=== PATIENT | female | born 1935 | race Caucasian/White ===

== ENCOUNTER 2016-11-15 05:37 | Day surgery (SDC) | payer MEDICARE, BC ==
[~2016-11-15] VITALS: Ht 157.5 cm; Wt 71.7 kg
[~2016-11-15 05:37] MED LIST: ACET-2723 PO; ANAS1TAB8 PO; ASCO500T9 PO; CALC-969 PO; CETI10TA56 PO; CHOL100018 PO; CINN500C14 PO; CYAN10009 PO; DENO120V SQ; FERR325T40 PO; FILG480S2 SQ; FISH1CAP29 PO; FLUT9.9S EA NOSTRIL; GABA-336 PO; GLUC-147 PO; HYDR25TA PO; IBUP-1724 PO; LABE200T27 PO; LEVO50TA72 PO; METF-200 PO; MULT-861 PO; PACL100V IV; RANI-197 PO; WARF5TAB6 PO; [UNRECOGNIZED DRUG - CODE] IV; [UNRECOGNIZED DRUG - CODE] PO
--- OUTSIDE RECORDS SUMMARY | 2016-11-15 05:42 | XMS REPORT | Continuity of Care Document ---
Author Author [facility] Organization [facility] Address Unknown Phone Unavailable Support Name Relationship Address Phone SHANTANU PATTERSON MD Caregiver [address] [place] [address] Unavailable JAROD BATISTA MD Caregiver [address] [place] [address] Unavailable RADAMES PERRY Next Of Kin Unknown [phone] Insurance Providers Guarantor Cecilia Vallejo Address [address] [place] [address] * Email [email or web address] Payer [employer] Select Plan 65 Policy Number [id number] Subscriber's Name Cecilia Vallejo Relationship 18 Self Group Number [id number] Effective Date 13 Payer Medicare Policy Number [id number] Subscriber's Name Cecilia Vallejo Relationship 18 Self Problems No problem information available. Medications Current Home Medications Medication Dose Units Route Directions Days Qty Instructions Start Date Acetaminophen (Tylenol Arthritis) 650 Mg Tablet.sa 650 Mg Oral As Needed 03/08/11 Calcium Carbonate/Vitamin D3 (Calcium 600 + D Tablet) 1 Tab Tablet 1 Tab Oral Daily 03/07/11 Cetirizine Hcl (Zyrtec) 10 Mg Tablet 10 Mg Oral Daily 03/07/11 Fish Oil/[place]-3 Fatty Acids (Fish Oil 1,000 Mg Capsule) 1 Cap Capsule 1 Cap Oral Daily 03/07/11 Fluticasone Propionate (Flonase Allergy Relief 50 Mcg/Actuation Nasal) 9.9 Ml [place].susp 1 [place] Each Nostril Daily as needed for Allery Symptoms 06/22/15 Glucosamine/D3/Boswellia Melba (Osteo Bi-Flex Caplet) 1 Each Tablet 1 Tab Oral Daily 06/22/15 Hydrochlorothiazide 12.5 Mg Tablet 12.5 Mg Oral Daily 03/07/11 Labetalol Hcl 200 Mg Tablet 200 Mg Oral Twice A Day 03/07/11 Levothyroxine Sodium 50 Mcg Tablet 50 Mcg Oral Daily 03/07/11 Lisinopril 2.5 Mg Tablet 2.5 Mg Oral Bedtime 03/07/11 Metformin Hcl 500 Mg Tablet 500 Mg Oral Twice A Day 03/07/11 Multivitamins W-Minerals (Vision) 1 Tab Tablet 1 Tab Oral Daily 03/07/11 Ranitidine Hcl 150 Mg Tablet 150 Mg Oral Three Times A Day Past Home Medications Medication Directions Ordered Status Ibuprofen 200 Mg Tablet, 03/07/11 Discontinued Social History Social History Problem Response Recorded Date/Time Onset Date Status Hx Substance Use No 06/23/2015 6:51am Not Applicable Not Applicable Hx Alcohol Use No 06/23/2015 6:51am Not Applicable Not Applicable Has the pt used tobacco in the last 12 months No 08/11/2016 10:31am Not Applicable Not Applicable Query Response Start Date Stop Date Smoking Status Never smoker Hospital Discharge Instructions No hospital discharge instructions. Plan of Care Prescriptions See Medication Section Functional Status No functional status results. Allergies, Adverse Reactions, Alerts Allergen Type Severity Reaction Status Last Updated ciprofloxacin HCl Allergy Intermediate REDNESS/ITCHING Active 03/07/11 paroxetine HCl Adverse Reaction Severe MEMORY LOSS Active 03/07/11 Cephalexin Monohydrate Allergy Intermediate REDNESS/ ITCHING Active Penicillin Allergy Severe WELTS/BOILS Active 03/07/11 Digoxin Adverse Reaction Intermediate RAPID BOUNDING HEART BEAT Active 10/13 Doxycycline Allergy Intermediate REDNESS/ITCHING Active 03/07/11 Erythromycin base Allergy Intermediate REDNESS ITCHING Active 03/07/11 Sulfamethoxazole Allergy Intermediate REDNESS /ITCHING Active 03/07/11 Trimethoprim Allergy Intermediate REDNESS /ITCHING Active 03/07/11 Ciprofloxacin Allergy Intermediate REDNESS/ITCHING Active 03/07/11 Terfenadine Allergy Unknown Active 06/22/15 Amoxicillin Allergy Unknown Active 06/22/15 Diltiazem Adverse Reaction Intermediate RAPID BOUNDING HEART BEAT Active 03/07/11 Pantoprazole Adverse Reaction Intermediate NAUSEA Active 03/07/11 ETHANOL Allergy Unknown Active 06/22/15 Immunizations Query Response on File Recorded Date/Time Hx Influenza Vaccination N DECLINES 08/11/16 10:31am Hx Pneumococcal Vaccination No 08/11/16 10:31am Hx Influenza Vaccination N DECLINES 08/11/16 10:31am Vital Signs Acute Vital Signs Vital Response Date/Time Temperature (Fahrenheit) 97.4 deg F (96.8 - 99.1) 08/11/2016 10:32am Temperature (Calculated Celsius) 36.11439 degrees C (36.0 - 37.3) 08/11/2016 10:32am Pulse Rate (adult) 76 bpm (60 - 100) 08/11/2016 10:32am Respiratory Rate 18 breaths/min (10 - 20) 08/11/2016 10:32am O2 Sat by Pulse Oximetry 99 % (90 - 100) 08/11/2016 10:32am Oxygen Delivery Method Room Air 08/11/2016 10:32am Blood Pressure 111/62 mm Hg 08/11/2016 10:32am Blood Pressure Source Automatic Cuff 08/11/2016 10:32am Height (Feet) 5 feet 08/11/2016 10:28am Height (Inches) 4.00 inches 08/11/2016 10:28am Weight (Kilograms) 75.450 kg 08/11/2016 10:28am Body Mass Index (BMI) 28.6 08/11/2016 10:28am Results Laboratory Results Test Name Result Units Flags Reference Collection Date/Time Result Date/ Time Comments White Blood Count 1.5 T/MM3 *L 4.5-11.0 08/06/2016 11:35am 08/06/2016 11: 47am Red Blood Count 2.97 M/MM3 L 4.00-5.20 08/06/2016 11:35am 08/06/2016 11: 47am Hemoglobin 10.2 GM/DL L 12-16 08/06/2016 11:35am 08/06/2016 11:47am Hematocrit 31.2 % L 36-46 08/06/2016 11:35am 08/06/2016 11:47am Mean Corpuscular Volume 105.1 UM3 H 80-100 08/06/2016 11:35am 2016 11:47am Mean Corpuscular Hemoglobin 34.3 UUG H 26-34 08/06/2016 11:35am 2016 11:47am Mean Corpuscular Hemoglobin Concent 32.7 GM/DL 31-37 08/06/2016 11:35am 08/06/2016 11:47am RDW Standard Deviation 71.8 FL H 36.9-50.2 08/06/2016 11:35am 2016 11:47am Platelet Count 101 T/MM3 L 130-400 08/06/2016 11:35am 08/06/2016 11: 47am Mean Platelet Volume 9.6 UM3 9.4-12.4 08/06/2016 11:35am 08/06/2016 11: 47am Neutrophils % (Manual) 50.0 % 33-66 08/06/2016 11:35am 08/06/2016 12: 29pm Lymphocytes % (Manual) 42.0 % 23-45 08/06/2016 11:35am 08/06/2016 12: 29pm Monocytes % (Manual) 4.0 % 0-9.0 08/06/2016 11:35am 08/06/2016 12:29pm Eosinophils % (Manual) 2.0 % 0-4 08/06/2016 11:35am 08/06/2016 12:29pm Basophils % (Manual) 2.0 % 0-2 08/06/2016 11:35am 08/06/2016 12:29pm Absolute Neutrophils (Manual) 0.8 T/MM3 L 1.8-7.7 08/06/2016 11:35am 09/2016 12:29pm Lymphocytes # (Manual) 0.6 T/MM3 L 1-4.8 08/06/2016 11:35am 08/06/2016 12:29pm Monocytes # (Manual) 0.1 T/MM3 0-0.8 08/06/2016 11:35am 08/06/2016 12: 29pm Eosinophils # (Manual) 0.0 T/MM3 0-0.5 08/06/2016 11:35am 08/06/2016 12 :29pm Basophils # (Manual) 0.0 T/MM3 0-0.2 08/06/2016 11:35am 08/06/2016 12: 29pm Red Cell Morphology Comment ABNORMAL 08/06/2016 11:35am 08/06/2016 12:29pm Anisocytosis 1+ 08/06/2016 11:35am 08/06/2016 12:29pm Polychromasia 1+ 08/06/2016 11:35am 08/06/2016 12:29pm Icterus Index < 2 0-7 08/06/2016 11:34am 08/06/2016 11:53am Chemistry Specimen Hemolysis < 15 0-25 08/06/2016 11:34a 08/06/2016 11:53am 0-25: Specimen Exhibited No Hemolysis. Turbidity < 20 0-20 08/06/2016 11:34a 08/06/2016 11:53am Sodium Level 136 MEQ/L 134-144 08/06/2016 11:34a 08/06/2016 11:53am Potassium Level 3.9 MEQ/L 3.6-5 08/06/2016 11:34a 08/06/2016 11:53am Chloride Level 99 MEQ/L 98-107 08/06/2016 11:34a 08/06/2016 11:53am Carbon Dioxide Level 28 MEQ/L 22-30 08/06/2016 11:34a 08/06/2016 11: 53am Anion Gap 9 MEQ/L 5-15 08/06/2016 11:34a 08/06/2016 11:53am Blood Urea Nitrogen 15.0 MG/DL 7-17 08/06/2016 11:34a 08/06/2016 11: 53am Creatinine 1.0 MG/DL 0.7-1.2 08/06/2016 11:34a 08/06/2016 11:53am BUN/Creatinine Ratio 15 RATIO 6-26 08/06/2016 11:34a 08/06/2016 11: 53am Glomerular Filtration Rate Calc 53 08/06/2016 11:34a 08/06/2016 11 :53am Glucose Level 85 MG/DL 65-110 08/06/2016 11:34a 08/06/2016 11:53am Calculated Osmolality 262 MOSM/KG 261-280 08/06/2016 11:[facility] 2016 11:53am Calcium Level 9.1 MG/DL 8.4-10.2 08/06/2016 11:34a 08/06/2016 11:53am Total Bilirubin 0.50 MG/DL 0.20-1.30 08/06/2016 11:34a 08/06/2016 11: 53am Alkaline Phosphatase 47 U/L 38-126 08/06/2016 11:34a 08/06/2016 11: 53am Total Protein 6.3 G/DL 6.3-8.2 08/06/2016 11:34am 08/06/2016 11:53am Albumin 3.8 G/DL 3.5-5.0 08/06/2016 11:34am 08/06/2016 11:53am Globulin 2.5 G/DL 2.4-3.6 08/06/2016 11:34am 08/06/2016 11:53am Albumin/Globulin Ratio 1.5 RATIO 1.1-2.2 08/06/2016 11:34am 08/06/2016 11:53am Aspartate Amino Transf (AST/SGOT) 23 U/L 14-36 08/06/2016 11:34am 08/06 11:53am Alanine Aminotransferase (ALT/SGPT) 25 U/L 9-52 08/06/2016 11:34am 09/2016 11:53am Carcinoembryonic Antigen 3.44 UG/L D H 0-3.0 08/06/2016 11:34am 2016 12:30pm DELTA NOTED. MW CA 27.29 192.57 U/ML D H 0-37.7 08/06/2016 11:34am 08/06/2016 12:52pm Procedures Procedure Status Date Provider(s) Ct thorax w/dye Completed 08/06/16 Ct abd & pelv w/contrast Completed 08/06/16 Bone imaging whole body Completed 08/06/16 616593"TECHNETIUM TC-99M MEDRONATE, DIAGNOSTIC, PER STUDY DO Completed 433317"TECHNETIUM TC-99M MEDRONATE, DIAGNOSTIC, PER STUDY DO Completed 776029"INFUSION, NORMAL SALINE SOLUTION , 250 CC" Completed 08/06/16 292041"LOW OSMOLAR CONTRAST MATERIAL, 300-399 MG/ML IODINE C Completed Ther/proph/diag inj sc/im Completed 07/07/16 TBO-FILGRASTIM 300 MCG INJECTION Completed 07/07/16 Encounters Encounter Location Arrival/Admit Date Discharge/Depart Date Attending Provider Discharged [facility] 08/11/16 10:21am 09/25/16 11: 59pm JAROD BATISTA MD Discharged [facility] 08/06/16 9:06am 09/20/16 11:59pm JAROD BATISTA MD Registered [facility] 08/06/16 9:04am JAROD BATISTA MD Discharged [facility] 07/07/16 1:48pm 07/07/16 2:10pm JAROD BATISTA MD
--- OUTSIDE RECORDS SUMMARY | 2016-11-15 05:42 | XMS REPORT | Continuity of Care Document ---
Author Author [facility] Organization [facility] Address Unknown Phone Unavailable Support Name Relationship Address Phone SHANTANU PATTERSON MD Caregiver [address] [place] [address] Unavailable JAROD BATISTA MD Caregiver [address] [place] [address] Unavailable RADAMES PERRY Next Of Kin Unknown [phone] Insurance Providers Guarantor Cecilia Vallejo Address [address] [place] [address] * Email [email or web address] Payer [employer] Select Plan 65 Policy Number [id number] Subscriber's Name Cecilia Vallejo Relationship 18 Self Group Number [id number] Effective Date 13 Payer Medicare Policy Number [id number] Subscriber's Name Cecilia Vallejo Relationship 18 Self [...] Tablet 10 Mg Oral Daily 03/07/11 Fish Oil/[place]-3 Fatty Acids (Fish Oil 1,000 Mg Capsule) 1 Cap Capsule 1 Cap Oral Daily 03/07/11 Fluticasone Propionate (Flonase Allergy Relief 50 Mcg/Actuation Nasal) 9.9 Ml [place].susp 1 [place] Each Nostril Daily as needed for Allery [...] Smoking Status Never smoker Hospital Discharge Instructions Current inpatient/outpatient. Discharge instructions are currently unavailable. Plan of Care Current inpatient/outpatient. The plan of care is currently unavailable Functional Status No functional status results. Allergies, [...] - 99.1) 08/11/2016 10:32am Temperature (Calculated Celsius) 36.87942 degrees C (36.0 - 37.3) 08/11/2016 10:32am [...] 11:53am Calculated Osmolality 262 MOSM/KG 261-280 08/06/2016 11:34a 2016 11:53am Calcium Level 9.1 MG/DL 8.4-10.2 08/06/2016 11:34a 08/06/2016 11:53am Total Bilirubin 0.50 MG/DL 0.20-1.30 08/06/2016 11:34a 08/06/2016 11: 53am Alkaline Phosphatase 47 U/L 38-126 08/06/2016 11:34a 08/06/2016 11: 53am Total Protein 6.3 G/DL 6.3-8.2 08/06/2016 11:34a 08/06/2016 11:53am Albumin 3.8 G/DL 3.5-5.0 08/06/2016 [...] 08/06/16 Bone imaging whole body Completed 08/06/16 502415"TECHNETIUM TC-99M MEDRONATE, DIAGNOSTIC, PER STUDY DO Completed 691935"TECHNETIUM TC-99M MEDRONATE, DIAGNOSTIC, PER STUDY DO Completed 741508"INFUSION, NORMAL SALINE SOLUTION , 250 CC" Completed 08/06/16 430427"LOW OSMOLAR CONTRAST MATERIAL, 300-399 MG/ML IODINE C Completed Ther/proph/diag inj sc/im Completed 07/07/16 TBO-FILGRASTIM 300 MCG INJECTION Completed 07/07/16 Encounters Encounter Location Arrival/Admit Date Discharge/Depart Date Attending Provider Registered [facility] 08/11/16 10:21am JAROD BATISTA MD Discharged [facility] 08/06/16 9:06am 09/20/16 11:59pm JAROD BATISTA MD Registered [facility] 08/06/16 9:04am JAROD BATISTA MD Discharged [facility] 07/07/16 1:48pm 07/07/16 2:10pm JAROD BATISTA MD
--- OUTSIDE RECORDS SUMMARY | 2016-11-15 05:42 | XMS REPORT | Continuity of Care Document ---
Author Author [facility] Organization [facility] Address Unknown Phone Unavailable Support Name Relationship Address Phone SHANTANU PATTERSON MD Caregiver [address] [place] [address] Unavailable JAROD BATISTA MD Caregiver [address] [place] [address] Unavailable RADAMES PERRY Next Of Kin Unknown [phone] Insurance Providers Guarantor Cecilia Vallejo Address [address] [place] [address] * Email [email or web address] Payer [employer] Select Plan 65 Policy Number [id number] Subscriber's Name Cecilia Vallejo Relationship 18 Self Group Number [id number] Effective Date 13 Payer Medicare Policy Number [id number] Subscriber's Name Cecilia Vallejo Relationship 18 Self [...] Tablet 10 Mg Oral Daily 03/07/11 Fish Oil/[place]-3 Fatty Acids (Fish Oil 1,000 Mg Capsule) 1 Cap Capsule 1 Cap Oral Daily 03/07/11 Fluticasone Propionate (Flonase Allergy Relief 50 Mcg/Actuation Nasal) 9.9 Ml [place].susp 1 [place] Each Nostril Daily as needed for Allery [...] tobacco in the last 12 months No 07/07/2016 2:01pm Not Applicable Not Applicable Query Response Start [...] Recorded Date/Time Hx Influenza Vaccination N DECLINES 07/07/16 2:01pm Hx Pneumococcal Vaccination No 07/07/16 2:01pm Hx Influenza Vaccination N DECLINES 07/07/16 2:01pm Vital Signs Acute Vital Signs Vital Response Date/Time Temperature (Fahrenheit) 97.2 deg F (96.8 - 99.1) 07/07/2016 1:59pm Temperature (Calculated Celsius) 36.38492 degrees C (36.0 - 37.3) 07/07/2016 1:59pm Pulse Rate (adult) 76 bpm (60 - 100) 07/07/2016 1:59pm Respiratory Rate 20 breaths/min (10 - 20) 07/07/2016 1:59pm O2 Sat by Pulse Oximetry 98 % (90 - 100) 07/07/2016 1:59pm Oxygen Delivery Method Room Air 07/07/2016 1:59pm Blood Pressure 142/66 mm Hg 07/07/2016 1:59pm Blood Pressure Source Automatic Cuff 07/07/2016 1:59pm Height (Feet) 5 feet 07/07/2016 2:00pm Height (Inches) 4.00 inches 07/07/2016 2:00pm Weight (Kilograms) 76.360 kg 07/07/2016 2:00pm Body Mass Index (BMI) 28.9 07/07/2016 2:00pm Results No known relevant diagnostic tests, laboratory data and/or discharge summary. Procedures Procedure Status Date Provider(s) COMPUTER DX MAMMOGRAM ADD-ON Completed 05/03/16 185804"DIAGNOSTIC MAMMOGRAPHY, PRODUCING DIRECT DIGITAL IMAG Completed [id number] SHOCK WAVE THERAPY; INVOLVING ELBOW EPI Completed CT THORAX W/DYE Completed 04/18/16 CT ABD & PELV W/CONTRAST Completed 04/18/16 BONE IMAGING WHOLE BODY Completed 04/18/16 862893"TECHNETIUM TC-99M MEDRONATE, DIAGNOSTIC, PER STUDY DO Completed 448690"INFUSION, NORMAL SALINE SOLUTION , 250 CC" Completed 04/18/16 221593"LOW OSMOLAR CONTRAST MATERIAL, 300-399 MG/ML IODINE C Completed THER/PROPH/DIAG INJ SC/IM Completed 06/02/16 Completed 06/02/16 Encounters Encounter Location Arrival/Admit Date Discharge/Depart Date Attending Provider Discharged [facility] 07/07/16 1:48pm 07/07/16 2:10pm JAROD BATISTA MD Registered [facility] 06/02/16 10:10am JAROD BATISTA MD Registered [facility] 05/03/16 2:03pm JAROD BATISTA MD Registered Clinic [facility] 04/18/16 8:00am JAROD BATISTA MD
--- OUTSIDE RECORDS SUMMARY | 2016-11-15 05:42 | XMS REPORT | Referral Summary ---
Author Author [facility] Organization [facility] Address Unknown Phone Unavailable Care Team Providers Care Development Manager Name Role Phone Mulugeta Jennifer Primary Care Physician [phone] Encounter VC Date(s): 06/08/15 - 06/08/15 [facility] [address] [place] [address] [place] [id number] Discharge Diagnosis: Elevated tumor markers Discharge Diagnosis: Colon cancer screening Discharge Diagnosis: History of breast cancer in female Discharge Disposition: 01-Home or Self Care Attending Physician: Be Higgins MD Admitting Physician: Be Higgins MD Referring Physician: Collin Gagnon MD Vital Signs Most recent to 1 oldest [Reference Range]: Temperature Tympanic 37 degC [36.6-38.1 degC] (06/08/15 11:33 AM) Blood Pressure 132/76 mmHg [90-140/60-90 mmHg] (06/08/15 11:33 AM) Problem List Condition Effective Dates Status Health Status Informant Allergic rhinitis Active (disorder)(Confirmed ) Disorder of Active magnesium metabolism (disorder)(Confirmed ) Essential Active hypertension (disorder)(Confirmed ) Hypothyroidism Active (disorder)(Confirmed ) Allergies, Adverse Reactions, Alerts Substance Reaction Severity Status amoxicillin Active cephalexin RASH Active ciprofloxacin Active digoxin Active doxycycline Active erythromycin Active ethanol Active penicillin Active sulfamethoxazole Active terfenadine Active trimethoprim Active Medications acetaminophen See Instructions, 500 mg Oral prn, 0 Refill(s) Start Date: 06/08/15 Status: Ordered anastrozole 1 mg oral tablet 1 mg 1 tabs, Oral, Daily, # 30 tabs, 0 Refill(s) Start Date: 06/08/15 Status: Ordered Calcium 500+D tabs, Chewed, BID, 0 Refill(s) Start Date: 06/08/15 Status: Ordered Cinnamon 500 mg oral capsule 1,000 mg 2 caps, Oral, BID, # 100 caps, 0 Refill(s) Start Date: 06/08/15 Status: Ordered Fish Oil 1000 mg oral capsule 1,000 mg 1 caps, Oral, BID, # 60 caps, 0 Refill(s) Start Date: 06/08/15 Status: Ordered fluticasone 50 mcg/inh nasal spray 2 sprays, Nasal, BID, # 16 g, 0 Refill(s) Start Date: 06/08/15 Status: Ordered glucosamine Oral, 0 Refill(s) Start Date: 06/08/15 Status: Ordered hydrochlorothiazide 25 mg oral tablet 25 mg 1 tabs, Oral, Daily, # 30 tabs, 0 Refill(s) Start Date: 06/08/15 Status: Ordered ibuprofen 200 mg oral tablet mg tabs, Oral, q6hr, 0 Refill(s) Start Date: 06/08/15 Status: Ordered levothyroxine 50 mcg (0.05 mg) oral tablet 50 mcg 1 tabs, Oral, Daily, # 30 tabs, 0 Refill(s) Start Date: 06/08/15 Status: Ordered lisinopril 2.5 mg oral tablet 2.5 mg 1 tabs, Oral, Daily, # 30 tabs, 0 Refill(s) Start Date: 06/08/15 Status: Ordered magnesium sulfate g, IV, Once, 0 Refill(s) Start Date: 06/08/15 Status: Ordered metFORMIN 500 mg oral tablet 500 mg 1 tabs, Oral, BID, # 60 tabs, 0 Refill(s) Start Date: 06/08/15 Status: Ordered Osteo Bi-Flex 0 Refill(s) Start Date: 06/08/15 Status: Ordered ranitidine 150 mg oral capsule mg caps, Oral, BID, 0 Refill(s) Start Date: 06/08/15 Status: Ordered Results No data available for this section Immunizations Vaccine Date Refusal Reason tetanus-diphth toxoids (Td) adult/adol 07/09/96 Procedures Procedure Date Related Diagnosis Body Site Breast lumpectomy1 2010 History of vaginal hysterectomy 1989 Laparoscopic cholecystostomy 1989 Appendectomy 1949 Tonsil operation 194 Cardiac catheterization2 1right breast cancer 2Dr. Anish, no stents, no strictures Social History Social History Type Response Smoking Status Never smoker Assessment and Plan No data available for this section
[2016-11-15 06:23] VITALS: Ht 157.5 cm; Wt 71.7 kg
[2016-11-15 06:24] VITALS: BP 169/75; PULSE 61; RESP 14; TEMP 97.9; O2SAT 92
[2016-11-15] MEDS ORDERED: BUPIVACAINE 0.25%/EPI 1:200,000 30ml SDV ONE (06:34)
[2016-11-15 06:38] LABS: BASOPHILS % (AUTO) 0.8 % (0-2); EOSINOPHILS # (AUTO) 0.1 T/MM3 (0-0.5); EOSINOPHILS % (AUTO) 3.1 % (0-4); HCT - HEMATOCRIT 36.6 % (36-46); HGB - HEMOGLOBIN 11.6 GM/DL (12-16); IMMATURE GRANULOCYTE # (AUTO) 0.01 T/MM3 (0.00-0.03); IMMATURE GRANULOCYTE % (AUTO) 0.3 % (0.0-0.5); LYMPHOCYTES # (AUTO) 1.6 T/MM3 (1-4.8); LYMPHOCYTES % (AUTO) 39.6 % (23-45); MEAN CORPUSCULAR HGB CONC(MCHC 31.7 GM/DL (31-37); MEAN CORPUSCULAR VOLUME 101.1 UM3 (80-100); MEAN PLATELET VOLUME 9.3 UM3 (9.4-12.4); MONOCYTES # (AUTO) 0.2 T/MM3 (0-0.8); MONOCYTES % (AUTO) 4.9 % (0-9.0); NEUTROPHILS % (AUTO) 51.3 % (33-66); RED BLOOD COUNT 3.62 M/MM3 (4.00-5.20); WBC - WHITE BLOOD COUNT 3.9 T/MM3 (4.5-11.0)
[2016-11-15 06:42] LABS: INR 1.05 (0.76-1.04); PROTHROMBIN TIME 11.4 SEC (9.31-12.49)
[2016-11-15 06:47] LABS: ANION GAP 10 MEQ/L (5-15); BUN/CREATININE RATIO 19 RATIO (6-26); CALCIUM 8.8 MG/DL (8.4-10.2); CHLORIDE 104 MEQ/L (98-107); CO2 - CARBON DIOXIDE 28 MEQ/L (22-30); CREATININE 0.9 MG/DL (0.7-1.2); GLOMERULAR FILTRATION RATE 60; GLUCOSE 100 MG/DL (65-110); POTASSIUM 4.3 MEQ/L (3.6-5); SODIUM 142 MEQ/L (134-144)
[2016-11-15] MEDS ORDERED: LIDOCAINE 1% (10mg/ml) 2ml SDV INJ ONE (07:00)
[2016-11-15] MEDS ORDERED: LR 1,000 ML IV SCH (07:00)
[2016-11-15] MEDS ORDERED: VANCOMYCIN 1 G in NORMAL SALINE 250 ML IV ONE (07:00)
--- NOTE | 2016-11-15 07:12 | ANESPREOP ---
Anesthesia Record Date and Time DATE: 11/15/16 TIME: 07:10 Pre-Op Diagnosis breast ca Proposed Surgical Procedure POWER PORT IMSERTION Allergies: Coded Allergies: Penicillins (Verified Allergy, Severe, WELTS/BOILS, 11/15/16) Cephalexin Monohydrate (Verified Allergy, Intermediate, REDNESS/ ITCHING, 11/15/16) ciprofloxacin (Verified Allergy, Intermediate, REDNESS/ITCHING, 11/15/16) ciprofloxacin HCl (Verified Allergy, Intermediate, REDNESS/ITCHING, ) doxycycline (Verified Allergy, Intermediate, REDNESS/ITCHING, 11/15/16) erythromycin base (Verified Allergy, Intermediate, REDNESS ITCHING, ) sulfamethoxazole (Verified Allergy, Intermediate, REDNESS /ITCHING, ) trimethoprim (Verified Allergy, Intermediate, REDNESS /ITCHING, 11/15/16) amoxicillin (Verified Allergy, Unknown, 11/15/16) terfenadine (Verified Allergy, Unknown, 11/15/16) paroxetine HCl (Verified Adverse Reaction, Severe, MEMORY LOSS, 11/15/16) digoxin (Verified Adverse Reaction, Intermediate, RAPID BOUNDING HEART BEAT, 11/15/16) diltiazem (Verified Adverse Reaction, Intermediate, RAPID BOUNDING HEART BEAT, 11/15/16) pantoprazole (Verified Adverse Reaction, Intermediate, NAUSEA, 11/15/16) Uncoded Allergies: ETHANOL (Allergy, Unknown, 06/22/15) Ht/Wt/BMI Height: 5 ' 2.00 " Weight: 71.700 kg BMI: 28.9 kg/m2 Vital Signs Date Time Temp Pulse Resp B/P Pulse Ox O2 Delivery O2 Flow Rate FiO2 11/15/16 06:24 97.9 61 14 169/75 92 Room Air Medications Inpatient Medications Current Medications Medications (Trade) Dose Ordered Sig/Estefani Start Time Stop Time Status Last Admin Dose Admin Lactated Ringer's (Lactated Ringers) 1,000 ml @ 50 mls/hr Q20H 11/15/16 07:00 11/15/16 06:50 50 MLS/HR Acetaminophen (Tylenol Extra Strength) 500 Mg Tablet, 1 TAB PO QID PRN for PAIN/ FEVER, (Reported) Last Taken: on 11/14/16 2200 Anastrozole (Anastrozole) 1 Mg Tablet, 1 TAB PO DAILY, (Reported) Last Taken: on Unknown Date & Time Ascorbic Acid (Vitamin C) 500 Mg Tablet , 1 TAB PO DAILY, (Reported) Last Taken: on 11/05/16 0800 Calcium Carbonate/Vitamin D3 (Calcium 500 + D Tablet) 1 Each Tablet, 1 TAB PO BID, (Reported) Last Taken: on 11/05/16 1200 Cetirizine Hcl (Zyrtec) 10 Mg Tablet, 10 MG PO DAILY, (Reported) Last Taken: on 11/14/16 0800 Cholecalciferol (Vitamin D3) 1,000 Unit Tablet , 1 TAB PO DAILY, (Reported) Last Taken: on 11/05/16 1200 Cinnamon Bark (Cinnamon) 500 Mg Capsule, 2 CAP PO BID, (Reported) Last Taken: on 11/05/16 1200 Cyanocobalamin (Vitamin B-12) (Vitamin B-12) 1, 000 Mcg Tablet, 1 TAB PO DAILY, (Reported) Last Taken: on 11/05/16 1200 Denosumab (Xgeva) 120 Mg/1.7 Ml Vial, 1.7 ML SQ Q4W, (Reported) Last Taken: on Unknown Date & Time Ferrous Sulfate (Iron) 325 Mg Tablet, 1 TAB PO WB, (Reported) BEST WITH FOOD. Last Taken: on 11/05/16 1200 Filgrastim-Sndz (Zarxio) 480 Mcg/0.8 Ml Syringe , 0.8 ML SQ DAILY, (Reported) Last Taken: on Unknown Date & Time Fish Oil/[place]-3 Fatty Acids (Fish Oil 1 ,000 Mg Capsule) 1 Cap Capsule, 1 CAP PO BID, (Reported) Last Taken: on 11/05/16 1200 Fluticasone Propionate (Flonase Allergy Relief 50 mcg/actuation Nasal) 9.9 Ml [place].susp, 1 SPRAY EA NOSTRIL DAILY PRN for ALLERY SYMPTOMS, (Reported) Last Taken: on Unknown Date & Time Gabapentin (Gabapentin) 100 Mg Capsule, 1 CAP PO DAILY, (Reported) Last Taken: on 11/14/16 2200 Glucosamine/D3/Boswellia Melba (Osteo Bi-Flex Caplet) 1 Each Tablet, 1 TAB PO DAILY, (Reported) Last Taken: on 11/05/16 1200 Hydrochlorothiazide (Hydrochlorothiazide) 25 Mg Tablet, 1 TAB PO WB, (Reported) Last Taken: on Unknown Date & Time Ibuprofen (Ibuprofen) 200 Mg Tablet, 1 TAB PO Q6HPRN PRN for PAIN, (Reported) Last Taken: on Unknown Date & Time Labetalol Hcl (Labetalol Hcl) 200 Mg Tablet, 200 MG PO BID, (Reported) Last Taken: on 11/15/16 0500 Levothyroxine Sodium (Levothyroxine Sodium) 50 Mcg Tablet, 50 MCG PO DAILY, (Reported) Last Taken: on 11/15/16 050 Lisinopril (Lisinopril) 2.5 Mg Tablet, 2.5 MG PO HS, (Reported) Last Taken: on 11/14/161899 Metformin Hcl (Metformin Hcl) 500 Mg Tablet, 500 MG PO BID, (Reported) Last Taken: on 11/14/161899 Multivitamins W-Minerals (Vision) 1 Tab Tablet , 1 TAB PO DAILY, (Reported) Last Taken: on 11/05/161199 Paclitaxel Protein-Bound (Abraxane) 100 Mg Vial , 100 MG IV Q3W, (Reported) Last Taken: on 11/08/16 1200 Palonosetron Inj (Aloxi) 0.25 Mg/5 Ml Vial, 0.25 MG IV QW, (Reported) Last Taken: on 11/08/16 1200 Ranitidine Hcl (Ranitidine Hcl) 150 Mg Tablet, 150 MG PO QID, (Reported) Last Taken: on 11/14/161899 Warfarin Sodium (Warfarin Sodium) 5 Mg Tablet, 1 TAB PO DAILY, (Reported) Last Taken: on 11/10/161899 Discontinued Medications Hydrochlorothiazide (Hydrochlorothiazide) 12.5 Mg Tablet, 12.5 MG PO DAILY, ( Reported) Currently on Beta Citlali: Yes Beta Citlali Last Taken: LABETELOL 12.5MG AT 0500 Medical/Surgical History Anesthesia PMH: Reports: *Diabetes, *Dyspnea (R/T A-FIB), *Hypertension, Arthritis, Asthma ("ENVIRONMENTAL"), Cancer (R BREAST CANCER METS TO SPINE), Hepatitis (HEP A CHILD 194S), Reflux, Thyroid Disease, Denies: *Angina, * OH, Anesthesia Reactions (DIFFICULTY WAKING UP AFTER MORPHINE, NO AIRWAY ISSUES KNOWN), Blood Transfusion Reac, CHF, COPD, CVA/Stroke/TIA, Clotting Problems, Deep Vein Thrombosis, Glaucoma, Hiatal Hernia, Malignant Hyperthermia, Pneumonia , Renal Disease, Rheumatic Fever, Seizures, Sleep Apnea, Tuberculosis Smoking Status: Never smoker Has pt. smoked today?: No Use Chewing Tobacco?: No Second Hand Exposure: No Substance Use Type: does not use Substance last used: unknown Alcohol Intake: none Last Drink: unknown HX of Last Menstrual Period: HYST Past Surgical History Orthopedic Surgeries: Yes - JESUS MANUEL KNEE SCOPE/MENISECTOMIES Abdominal Surgeries: Yes - APPY; GALLBLADDER Genitourinary Surgeries: No Cardiac Surgeries: No Endocrine Surgeries: No Reproductive Surgeries: Yes - PART VAG HYST, R LUMPECTOMY WITH LYMPH NODES Neurological Surgeries: No Ear Surgeries: No Nose Surgeries: No Throat Surgeries: Yes - TONSILLECTOMY Other Surgeries: Yes - JESUS MANUEL KNEE SCOPE/MENISECTOMIES Anesthesia Adverse Reactions: FOUND none Family Hx of Anesthesia Advers: none Hx of Motion Sickness: No Pertinent Findings Laboratory Tests 11/15/16 06:31 Test 11/15/16 06:31 Prothromb Time International Ratio 1.05 (0.76-1.04) EKG Rhythm: Sinus Rhythm Physical Exam Respiratory: Bilat breath sounds equal, Lungs clear Cardiovascular: FOUND Regular rate, rhythm, FOUND No murmur Airway Assessment Mallampati Score: II TMD: 3 Fingerbreadths Neck Extension: Good Overall Assessment: No Airway Concerns ASA: 3 Plan Anesthesia Plan: TIVA Discussion Discussed risks/options/alternatives of anesthesia and questions answered. Patient consents. Nursing pain assessment noted. Present: Children Attestation Statement Prior to the delivery of any anesthetic medication, I examined the patient, developed the plan, obtained the patient's consent and discussed the risk and benefits of the procedure with the patient/guardian. SHERINE TOBIAS CRNA Nov 15, 2016 07:12
[2016-11-15] MEDS ORDERED: FENTANYL 100mcg/2ml INJECTION ONE (07:27)
[2016-11-15] MEDS ORDERED: ROCURONIUM 50mg/5ml INJECTION IV ONE (07:28)
[2016-11-15] MEDS ORDERED: LACRI-LUBE EYE OINT 3.5 G TUBE ONE (07:41)
[2016-11-15] MEDS ORDERED: GLYCOPYRROLATE 0.4mg/2ml INJECTION ONE (07:44)
[2016-11-15] MEDS ORDERED: ONDANSETRON 4mg/2ml INJECTION ONE (07:44)
[2016-11-15] MEDS ORDERED: SUGAMMADEX 200 MG/2 ML INJECTION IV ONE (08:23)
[2016-11-15 08:40] VITALS: BP 101/58; PULSE 69; RESP 12; TEMP 96.9; O2SAT 98
[2016-11-15 08:50] VITALS: BP 112/58; PULSE 67; RESP 17; O2SAT 94
[2016-11-15] MEDS ORDERED: HYDR-4246 PO (08:52)
--- NOTE | 2016-11-15 08:52 | ANESPO ---
Post-Op Note Date 11/15/16 Time: 08:51 Status Pt Participated in Evaluation: Pt participated in person Vital Signs Date Time Temp Pulse Resp B/P Pulse Ox O2 Delivery O2 Flow Rate FiO2 11/15/16 06:24 97.9 61 14 169/75 92 Room Air Respiratory Function: Airway patent, Regular respirations Cardiovascular Function: Regular pulse Mental Status: Alert/oriented Pain Level Intensity: 0 Hydration: Taking po fluids, IV infusing Complications during Recovery None apparent Post-Anesthesia Notes pt. oneal. well Follow-Up Instructions Instructions Per Surgeon Additional Information none SHERINE TOBIAS CRNA Nov 15, 2016 08:52
--- NOTE | 2016-11-15 08:55 | DI ---
Indication: ITS.REASON: POST POWERPORT INSERTION PROCEDURE: PORTACATH W FLUORO W 1V CXR: Encounter: Initial Comparison: None Findings: Right internal jugular central venous port catheter in place with the tip projecting over the mid SVC. No pneumothorax seen. Linear atelectasis in both lungs. No consolidative pneumonia or gross effusion. Heart size and mediastinal contours are within normal limits. Impression: Right IJ port catheter as above. .
[2016-11-15 09:05] VITALS: BP 101/58; PULSE 68; RESP 21; O2SAT 98
[2016-11-15] MEDS ORDERED: ACETAMINOPHEN 325 MG TABLET PO ONE (09:15)
[2016-11-15 09:20] VITALS: BP 134/61; PULSE 66; RESP 24; O2SAT 93
[2016-11-15 09:35] VITALS: BP 141/68; PULSE 61; RESP 13; O2SAT 95
--- NOTE | 2016-11-15 23:04 | OPNOTEF ---
DATE OF SERVICE 11/15/2016 SURGEON Be Romero MD PREOPERATIVE DIAGNOSES Need for long-term central venous access to facilitate chemotherapy. Personal history for metastatic breast cancer. POSTOPERATIVE DIAGNOSES Need for long-term central venous access to facilitate chemotherapy. Personal history for metastatic breast cancer. PROCEDURE Insertion of PowerPort catheter under sonographic and fluoroscopic guidance. ANESTHESIA TIVA INDICATIONS Mrs. Vallejo is an 81-year-old female who has had the misfortune of developing metastatic breast cancer. She presents to undergo placement of a Port-A-Cath to facilitate her ongoing chemotherapy. For completeness please refer to notes included in the patient's chart. DESCRIPTION OF OPERATION After informed consent was obtained, the patient was brought to the operative suite, placed on the table in supine fashion. The right lateral neck and anterior chest were then prepped and draped in a sterile fashion. First, the patient was placed in Trendelenburg position and ultrasonography was performed along the right lateral neck. One could see a round hypoechoic structure which collapsed with pressure applied via the ultrasound transducer. This corresponded with the internal jugular vein. 0.25% Marcaine with epinephrine was injected overlying the anatomic location of the internal jugular vein. A Cook needle was then introduced through the area of analgesia and into the underlying internal jugular vein under sonographic guidance. A guidewire was advanced through the Cook needle and the Cook needle was then removed. Fluoroscopy was then performed which revealed the guidewire to be within the atrium and right ventricle. A 5-6 mm incision was then made adjacent to the exit site of the guidewire and extended out laterally. Additional 0.25% Marcaine with epinephrine was injected about two fingerbreadths below the right clavicle. A 3 cm incision was then made through the area of analgesia. A subcutaneous pocket was then created just inferior or caudad to this incision. A Port-A-Cath reservoir was then brought forth into the operative field and placed within the subcutaneous pocket and subsequently imbricated to the underlying pectoralis fascia in a triangulated fashion by placing three simple interrupted sutures of 0-Prolene through the underlying pectoralis fascia and subsequently through the holes within the reservoir itself. The catheter was then tunneled between the two incisions. A dilator and tear-away sheath were then advanced over the guidewire. The guidewire and dilator were then removed. The catheter was then quickly advanced in the tear-away sheath and the tear-away sheath was then removed. Under fluoroscopy, the tip of the catheter was then placed near the junction between the superior vena cava and right atrium and cut to the appropriate length and subsequently attached to the Port-A-Cath reservoir. The Port-A-Cath reservoir was then accessed and was easily aspirated and flushed with heparinized saline. Both skin incisions were then closed in a subcuticular fashion with 4-0 Monocryl. The patient tolerated the procedure without difficulty. A post procedure chest x-ray will be obtained postoperatively. The results of this film are pending at the time of dictation. LAY
== END 2016-11-15 09:45 | disposition home or self-care (01) ==
LOC: SCU 05:37
PROVIDERS: ATTEND Surgery
DX: Z45.2 Encounter for adjustment and management of vascular access device (principal); C50.411 Malignant neoplasm of upper-outer quadrant of right female breast; C79.51 Secondary malignant neoplasm of bone; I10 Essential (primary) hypertension; E11.9 Type 2 diabetes mellitus without complications; J45.909 Unspecified asthma, uncomplicated; K21.9 Gastro-esophageal reflux disease without esophagitis; Z79.01 Long term (current) use of anticoagulants; Z79.811 Long term (current) use of aromatase inhibitors; Z79.84 Long term (current) use of oral hypoglycemic drugs; Z79.899 Other long term (current) drug therapy; Z79.51 Long term (current) use of inhaled steroids; Z88.0 Allergy status to penicillin; Z88.1 Allergy status to other antibiotic agents; Z88.8 Allergy status to other drugs, medicaments and biological substances; Z90.49 Acquired absence of other specified parts of digestive tract; Z90.710 Acquired absence of both cervix and uterus; Z17.0 Estrogen receptor positive status [ER+]
CPT/HCPCS: 36415; 80048; 85025; 85610

== ENCOUNTER → 2016-11-23 | Outpatient (CLI) | payer MEDICARE, BC ==
[~2016-11-23] MED LIST changes: +HYDR-4246 PO; +IOHEXOL 300 MG/ML 100ml INJECTION ONE; +NORMAL SALINE 100 ML ONE; +SALINE FLUSH 10ml SYRINGE ONE
--- NOTE | 2016-11-23 11:41 | DI ---
Indication: ITS.REASON: C50.411 BREAST CA PROCEDURE: CT CHEST/ABD/PELVIS WC: Encounter: Subsequent Comparison: CT chest, abdomen and pelvis dated August 06, 2016 Technique: Axial CT images were performed through the chest, abdomen and pelvis after the administration of intravenous contrast. Coronal and sagittal two-dimensional reformats. Automated Exposure Control and Iterative Reconstruction dose reducing techniques were utilized. Contrast: Omnipaque 300 89 mL Findings: Chest: Lungs are stable without consolidative pneumonia, pleural effusion or pneumothorax. No worrisome pulmonary nodules or masses. The central airways are patent. No axillary or mediastinal adenopathy. Heart size is normal. No pericardial effusion. Great vessels are unchanged. Right IJ port catheter. Right breast and axillary region surgical clips. Abdomen/pelvis: Small hiatal hernia. The liver is normal. Gallbladder is surgically absent. The spleen, pancreas and adrenal glands are within normal limits. Kidneys are stable. No abdominal or pelvic lymphadenopathy. Bladder is normal. Uterus is surgically absent. There is evidence of pelvic floor laxity with herniation of pelvic fat causing a rectocele. This is unchanged. Sigmoid diverticulosis without acute diverticulitis. No evidence of a bowel obstruction. Bone windows show degenerative changes in the spine with scoliosis. There is a prominent sclerotic lesion within the T11 vertebra. Smaller areas of sclerosis are seen in all lumbar vertebra along with S1. Small sclerotic foci are noted in the right medial iliac bone and both iliac wings. Overall the bone lesions do not appear visibly changed. Dense sclerotic foci again seen at T1. Impression: Stable exam with multifocal osseous metastatic disease. No new or worsening static disease seen. .
--- NOTE | 2016-11-23 12:06 | DI ---
Indication: ITS.REASON: C50.411 BREAST CA PROCEDURE: NM BONE SCAN, WHOLE BODY: Encounter: Subsequent Comparison: Bone scan dated August 06, [address] chest, abdomen and pelvis from today Technique: 27 mCi of Tc-99m MDP was administered intravenously. Anterior and posterior planar whole-body and spot images were obtained. FINDINGS: The scan demonstrates the expected normal biodistribution for the radiotracer. There is probable degenerative uptake seen in the shoulders, knees, both wrists and left midfoot. Metastatic lesions in the sacrum and pelvic bones are stable. Intense uptake in the T11 vertebra is similar to the prior study. More mild uptake in the T1 vertebra is also unchanged. No new areas of abnormal tracer uptake identified. IMPRESSION: Stable metastatic disease. .
== END ==
LOC: IMA 08:36
PROVIDERS: ATTEND Internal Medicine Hematology & Oncology
DX: C50.411 Malignant neoplasm of upper-outer quadrant of right female breast (principal); C79.51 Secondary malignant neoplasm of bone
CPT/HCPCS: 71260; 74177; 78306; A9503; J7050; Q9967